=== PATIENT | female | born 1945 | race Caucasian/White ===

== ENCOUNTER 2024-12-14 07:44 | Day surgery (SDC) | payer MEDICARE, OTHER ==
[~2024-12-14] VITALS: Ht 157.5 cm; Wt 74.3 kg
[~2024-12-14 07:44] MED LIST: ESTRIOL100 GM MISC; IBLOOD GLUCOSE TEST STRIP 1 EA TEST VI PRN; LACTATED RINGER'S 1,000 ML IV SCH; LIDOCAINE HCL 1% 5 ML SDV INJ ONE; LIPITOR40 MG PO; LISINOPRIL10 MG PO; MIDAZOLAM HCL 5 MG/5 ML VIAL IV PRN; MULTIVITAMINS1 EAC7 PO; OMEPRAZOLE20 MG PO; SYNTHROID125 MCG PO; VITAMIN D35000 UNIT PO; fentaNYL citrate 100 MCG/2 ML VIAL IV PRN
[2024-12-14 08:05] VITALS: BP 151/65
[2024-12-14] MEDS ORDERED: [UNRECOGNIZED DRUG - OTHER] PO (08:12)
[2024-12-14] MEDS ORDERED: CENTRUM SILVER1 EAC4 PO (08:12)
[2024-12-14] MEDS ORDERED: CALCIUM PO (08:12)
[2024-12-14] MEDS ORDERED: FLONASE ALLERG9.9 ML NAS (08:13)
[2024-12-14] MEDS ORDERED: BENZONATATE100 MG PO (08:13)
[2024-12-14] MEDS ORDERED: MIDAZOLAM HCL 5 MG/5 ML VIAL ONE (08:41)
[2024-12-14] MEDS ORDERED: fentaNYL citrate 100 MCG/2 ML VIAL ONE (08:41)
[2024-12-14] MEDS ORDERED: PROCHLORPERAZINE EDISYLATE 10 MG/2 ML VIAL IV ONE (09:00)
[2024-12-14] MEDS ORDERED: ondansetron HCL 4 MG/2 ML VIAL IV ONE (09:00)
[2024-12-14] MEDS ORDERED: PROCHLORPERAZINE EDISYLATE 10 MG/2 ML VIAL ONE (09:01)
[2024-12-14] MEDS ORDERED: ondansetron HCL 4 MG/2 ML VIAL ONE (09:03)
--- NOTE | 2024-12-14 09:42 | NUR ---
12/14/24 0942 Amy Garcia PT TO PACU SLEEPING RESPONDS TO VERBAL STIMULI. PT DENIES PAIN AND NAUSEA.
[2024-12-14 10:03] VITALS: BP 137/63
--- NOTE | 2024-12-14 10:20 | OR ---
[facility] [address] [place], [place] [address] Signed DATE OF OPERATION: 12/14/2024 SURGEON: Nancy Rodrigez MD PREOPERATIVE DIAGNOSES: 1. Father of colon cancer at age 91. 2. Sister had either rectal cancer and/or cancerous rectal polyps at age 45 or 50. 3. Personal history of colonic polyps in 2004 at age 60. 4. Diverticulosis. POSTOPERATIVE DIAGNOSIS: Minimal left-sided diverticulosis. PROCEDURE: Colonoscopy without biopsy. ESTIMATED BLOOD LOSS: None. INDICATIONS: Zahida is a 79-year-old female, asked to see me for a followup colonoscopy. She remains in excellent health and actually looks younger than her stated age. Her father actually lived to be age 91 when he of his colon cancer. Her sister had some type of rectal cancer or cancerous rectal polyps that required a colostomy around age 45 or 50. Zahida underwent a colonoscopy in 2004 at the age of 60 [address] Marco A Serrano. She had a single adenomatous polyp removed. This came from the right mid colon. She went back to Dr. Serrano in 2009 at the age of 65. This was unremarkable. I helped her in 2019 at the age of 74. She had a small 4 mm tubular adenomatous polyp removed at 70 cm. She also had a hyperplastic polyp and just a little diverticulosis. She did well with 5 mg of Versed and 100 mcg of fentanyl. We asked her to follow up in 5 years. She also has significant postoperative nausea and vomiting. We gave her Zofran and Phenergan and she did very well back in 2019. She told me in the office, she has no lower GI complaints. I gave her our brochure on colonoscopy. We had reviewed the nature of the test. There is risk including, but not limited to gas bloating, crampy abdominal pain, bleeding, perforation requiring surgery, and missed diagnosis. We also had reviewed the written instructions for the bowel prep line by line. It is the same bowel prep she took previously. She understands an adult person has to take her home afterwards. It looks like that will be her son today. She had expressed understanding and wished to proceed. Electronically Signed By: ANNCY RODRIGEZ MD 12/14/24 1020 PATIENT NAME: ZAHIDA CASTELLANOS OPERATIVE REPORT DATE OF : 47 REPORT #: [id number] PHYSICIAN: NANCY RODRIGEZ MD PCP: SOWMYA CRUM MD REPORT IS CONFIDENTIAL AND NOT TO BE RELEASED WITHOUT AUTHORIZATION [facility] [address] [place], [place] [address] Signed DESCRIPTION OF PROCEDURE: Zahida was taken into our endoscopy suite and placed in the left lateral decubitus position. She was given 4 mg of Versed and 100 mcg of fentanyl to cover the case. A digital rectal exam was performed. This was unremarkable. No external hemorrhoids. Good sphincter tone. No masses. The adult colonoscope had been introduced and advanced under direct visualization of the camera. We gave a little extra sedation and a little abdominal compression to get around and into the cecum itself. Her prep was quite good. We could easily see the appendiceal orifice and the ileocecal valve. The scope was then slowly withdrawn. We took several pictures throughout for photodocumentation. She does have some diverticula in the left and sigmoid colon. They are moderate in size, few in number and scattered about. No polyps on this occasion. The scope was retroflexed in the rectum. There was no additional pathology noted above the anal canal. After this, the gas was suctioned out and the colonoscope removed. Zahida tolerated the procedure quite well. RECOMMENDATIONS: Zahida is welcome to return in 5 years for repeat colonoscopy given her family and personal history so long as her health holds up. When she gets within 10 years of the end of her life, then she can discontinue colonoscopies. Nancy Rodrigez MD ALB/MODL /[id number] cc: MD Nancy Garnica MD Copies: SOWMYA CRUM DMD, ANDREW L MD ~ Electronically Signed By: NANCY RODRIGEZ MD 12/14/24 1020 PATIENT NAME: ZAHIDA CASTELLANOS OPERATIVE REPORT DATE OF : 47 REPORT #: [id number] PHYSICIAN: NANCY RODRIGEZ MD PCP: SOWMYA CRUM MD REPORT IS CONFIDENTIAL AND NOT TO BE RELEASED WITHOUT AUTHORIZATION
== END 2024-12-14 10:20 | disposition home or self-care (01) ==
LOC: DS 07:44
PROVIDERS: ATTEND Colon & Rectal Surgery
PROC: 0DJD8ZZ Inspection of Lower Intestinal Tract, Via Natural or Artificial Opening Endoscopic (ICD-10-PCS; principal; 2024-12-14 08:50)
DX: Z12.11 Encounter for screening for malignant neoplasm of colon (principal); K57.30 Diverticulosis of large intestine without perforation or abscess without bleeding; K21.9 Gastro-esophageal reflux disease without esophagitis; E03.9 Hypothyroidism, unspecified; E78.5 Hyperlipidemia, unspecified; I10 Essential (primary) hypertension; Z86.0101 Personal history of adenomatous and serrated colon polyps; Z79.890 Hormone replacement therapy; Z79.899 Other long term (current) drug therapy; Z80.0 Family history of malignant neoplasm of digestive organs
CPT/HCPCS: 99153; G0500; J0780; J2250; J2405; J3010; J7121